=== PATIENT | female | born 1985 | race Caucasian/White ===

== ENCOUNTER 2017-05-20 13:40 | Emergency (ER) | payer OTHER, SELFPAY ==
[2017-05-20 13:42] VITALS: BP 153/64; PULSE 87; RESP 16; TEMP 37; O2SAT 97; BMI 46.5
--- NOTE | 2017-05-20 15:12 | ED.DCSUM_ITS ---
- ER Visit Summary Date of Service: 05/20/17 Chief Complaint: Head injury History of Present Illness: The patient is a [address] Jasbir Craven. She reports that she was hit in the right side of her forehead by a baseball off of a bat. She did not have a loss of consciousness. She complains of an aching pain is 9 out of 10 at worst and 6 out of 10 currently. Is worsened by nothing and relieved by ice. She denies any neck pain, other injuries, or complaints. Physical Examination: Vitals: Stable. Afebrile. Head: Hematoma over the right side of her forehead. Mildly tender to palpation. Neck: No vertebral tenderness. Full ROM without difficulty. Cleared by NEXUS criteria. Back: No vertebral tenderness. General: A&O x 3. NAD. Cardiovascular exam: Regular rate and rhythm, no murmur, rub or gallop. Respiratory exam: Chest nontender. No crepitus. Clear to auscultation bilaterally. No wheezes or stridor. Abdominal exam: Soft, nontender, nondistended, normal bowel sounds. No pain in RUQ or LUQ specifically. No peritoneal signs. Extremity: Atraumatic. No pain with range of motion. Emergency Department Course and Treatment: Patient refused pain medications. I discussed her the fact that she does not have indication for a CT at this time. Treatment Plan: Patient will be discharged instructions to follow-up Dr. Craven in 1 week for another exam. In return to the emergency department for any worsening symptoms. Disposition: To home in improved and stable condition. Impression: 1. Closed head injury. 2. Hematoma to forehead. This note was generated with [employer] dictation software. It may contain incorrect words, spelling, and punctuation that were not noted in review of the chart prior to signing ED Disposition - Plan for ED Patient: Disposition: Home or Assisted Living Chief Complaint: Head Injury Instructions: ED Head Injury Closed Referrals: Jasbir Craven, DO [Primary Care Provider] - As Needed
[2017-05-20 15:27] VITALS: PULSE 73; RESP 18; O2SAT 95
--- NOTE | 2017-05-20 15:28 | ED.RN ---
REVIEWED D/C INSTRUCTIONS, FOLLOW UP CARE, AND S/S THAT WOULD WARRANT A RETURN TO THE ED WITH PT. PT VERBALIZED AN UNDERSTANDING AND DENIES FURTHER QUESTIONS FOR THIS RN. PT SKIN P/W/D, RESP EVEN AND UNLABORED, PT A&O X 3, NO DISTRESS NOTED. PT AMBULATED OUT OF ED, GAIT STEADY.
== END 2017-05-20 15:28 | disposition home or self-care (01) ==
LOC: ED 15:27
PROVIDERS: Emergency Provider Emergency Medicine; Family Provider Family Medicine; PCP Family Medicine
DX: S00.83XA Contusion of other part of head, initial encounter (principal); W21.03XA Struck by baseball, initial encounter; Y93.9 Activity, unspecified; Y92.9 Unspecified place or not applicable
CPT/HCPCS: 99282